=== PATIENT | male | born 1955 | race Caucasian/White ===

== ENCOUNTER 2023-03-29 10:51 | Emergency (ER) | payer BC, SELFPAY ==
--- NOTE | ~2023-03-29 | CT_ITS ---
EXAMINATION: CT abdomen pelvis w con DATE: 03/29/2023 12:44 INDICATION: Right lower quadrant pain and tenderness TECHNIQUE: Computed tomography (CT) of the abdomen and pelvis was performed with 100 mL Omnipaque-350 intravenous contrast. Automated exposure control and iterative reconstruction technique were employe d. The dose-length product was 412.06 mGy-cm. COMPARISON: None FINDINGS: Lung bases are clear. Heart size is normal. No pericardial or pleural effusion. Multiple calcified sp lenic nodules and a few small hepatic calcific lesions consistent with old granulomatous disease. Gal lbladder, pancreas, bilateral adrenal glands and left kidney are normal. 4 mm cyst at the upper pole the right kidney. Normal appendix. A couple diverticula along the distal descending colon without adj acent comparison to suggest diverticular colitis. Bowels are otherwise unremarkable with no obstructi on bladder is normal. Prostatomegaly measuring 4.6 x 3.4 cm. No free intraperitoneal gas or fluid. No pathologically enlarged abdominal or pelvic lymphadenopathy. Moderate to lumbar and lower thoracic s pondylosis. There are bridging osteophytes at multiple levels in the spine and bridging osteophytes a cross the right sacroiliac joint, consistent with diffuse idiopathic skeletal hyperostosis (DISH). IMPRESSION: 1. No acute intra-abdominal/pelvic process with normal appendix. Reviewed, dictated and finalized at location A.
[2023-03-29 11:00] VITALS: BP 139/83; PULSE 85; RESP 15; TEMP 36.8; O2SAT 99
[2023-03-29 11:23] LABS: Basophils Absolute Auto 0.1 K/mm3 (0.0-0.1); Basophils Percent Auto 1.1 % (0.2-1.2); Eosinophils Absolute Auto 0.5 K/mm3 (0-0.3); Eosinophils Percent Auto 6.4 % (0-4.4); Hemoglobin 14.5 g/dL (14.0-18.0); Immature Granulocyte Absolute 0.02 K/mm3 (0.00-0.031); Immature Granulocyte Percent A 0.3 % (0-0.5); Lymphocytes Percent Auto 32.5 % (18.3-44.2); Mean Corpuscular HGB Conc 33.7 g/dl (32-36); Mean Corpuscular Hemoglobin 30.5 pg (26-34); Mean Corpuscular Volume 90.3 fl (80-100); Mean Platelet Volume 9.9 fl (7.4-10.4); Monocytes Absolute Auto 0.6 K/mm3 (0.1-0.6); Monocytes Percent Auto 7.5 % (2.6-8.5); Neutrophils Absolute Auto 4.2 K/mm3 (1.3-6.7); Neutrophils Percent Auto 52.2 % (45.5-73.1); Platelet Count Result 192 k/mm3 (150-375); Red Blood Count 4.76 M/mm3 (4.6-6.20)
[2023-03-29 11:25] LABS: Appearance Urine Clear (Clear); Bilirubin Urine Negative (Negative); Blood Urine Negative (Negative); Color Urine Yellow (Yellow); Glucose Urine UA Negative (Negative); Ketones Urine Negative (Negative); Leukocyte Esterase Ur Negative LEU/UL (Negative); Nitrate Urine Negative (Negative); Protein Urine Negative (Negative); Specific Grav Ur 1.005 (1.001-1.035); Urobilinogen Urine 0.2 mg/dL (<2.0); pH Urine 5.5 (5.0-9.0)
[2023-03-29 11:29] LABS: Add Urine Microscopic? NO
[2023-03-29 11:36] LABS: Alanine Aminotransferase 22 U/L (6-50); Albumin Level 4.7 g/dL (3.5-5.1); Alkaline Phosphatase 88 U/L (38-126); Anion Gap 9 mmol/L (8-16); Aspartate Amino Transferase 31 U/L (17-59); Bilirubin,Total 1.2 mg/dL (0.2-1.3); Blood Urea Nitrogen 19 mg/dL (9-20); Calcium 9.3 mg/dL (8.4-10.2); Carbon Dioxide 26 mmol/L (22-30); Chloride 98 mmol/L (98-107); Estimated CRCL calculation 74 ml/min; Estimated Glomerular Filt Rate > 60; Glucose 86 mg/dL (65-110); Lipase 95 U/L (23-300); Potassium 4.2 mmol/L (3.4-5.0); Sodium 133 mmol/L (137-145)
--- NOTE | 2023-03-29 12:18 | ED.ABDPAIN ---
HPI - Abdominal Pain General Chief Complaint: Abdominal Pain Stated Complaint: Lower Abd Pain Time Seen by Provider: 03/29/23 12:06 History of Present Illness HPI narrative: Patient is a 67-year-old male presenting with abdominal pain. Patient states over the last several days he has had right-sided lower abdominal pain that radiates into his groin. States that he has chronic urinary frequency that he thinks is related to an enlarged prostate. No fevers or chills, chest pain, shortness of breath, cough, nausea or vomiting, diarrhea, constipation, dysuria, melena, hematochezia. Related Data Allergies Allergy/AdvReac Type Severity Reaction Status Date / Time No Known Allergies Allergy Verified 03/29/23 11:05 Review of Systems Review of Systems: All systems reviewed & are unremarkable except as noted in HPI and below PMFSH Social History Social History Alcohol intake: current Exam Narrative: GENERAL: Well-appearing, well-nourished, and in no acute distress. HEAD: Normocephalic, atraumatic. EYES: PERRLA and EOMI. ENT: Nares clear, no rhinorrhea or epistaxis. Mucous membranes moist. NECK: Supple. CHEST: Clear to auscultation. No respiratory distress. HEART: Regular rate and rhythm ABDOMEN: Soft, mild right lower quadrant tenderness, no guarding or rebound EXTREMITIES: Normal range of motion. No edema. SKIN: Warm, dry, no rash. NEURO: No focal deficits. Alert and oriented x3. PSYCH: Normal mood and affect. Course Vital Signs Vital signs: Vital Signs Temperature 98.3 F 03/29/23 11:00 Pulse Rate 85 03/29/23 11:00 Respiratory Rate 15 03/29/23 11:00 Blood Pressure 139/83 03/29/23 11:00 Pulse Oximetry 99 03/29/23 11:00 Oxygen Delivery Room Air 03/29/23 11:00 Temperature 98.3 F 03/29/23 11:00 Pulse Rate 80 03/29/23 13:34 Respiratory Rate 15 03/29/23 13:34 Blood Pressure 140/80 03/29/23 13:34 Pulse Oximetry 100 03/29/23 13:34 Oxygen Delivery Room Air 03/29/23 11:00 MDM - Abdominal Pain MDM Narrative Medical decision making narrative: Patient is a 67-year-old male presenting with right lower abdominal pain for several days. Vitals are stable. Exam remarkable for the above. Blood work is unremarkable. UA is not infected. No blood. CT abdomen pelvis shows no acute abnormalities. Normal appendix. No ureteric lithiasis. On reevaluation, the patient is resting comfortably. Discussed the reassuring work-up. Feel he is safe for outpatient management. Advised that he follow-up with his PCP, states that he already has an appointment next week. Appropriate return precautions given. Patient voiced understanding and is agreeable with plan. Discharged in stable condition. Differential Diagnosis Differential diagnosis: Likely abdominal pain, acute appendicitis, calculus of kidney, constipation, diverticulitis, gastroenteritis, pancreatitis and small bowel obstruction Medical Records Attestation: I reviewed the patient's medical records. Lab Data Attestation: I reviewed the patient's lab results. 03/29/23 11:15 03/29/23 11:15 Labs: Lab Results 03/29/23 Range/Units 11:15 WBC 8.0 (4.5-10.0) K/mm3 RBC 4.76 (4.6-6.20) M/mm3 Hgb 14.5 (14.0-18.0) g/dL Hct 43.0 (42.0-52.0) % MCV 90.3 (80-100) fl MCH 30.5 (26-34) pg MCHC 33.7 (32-36) g/dl RDW 12.0 (11.5-14.5) % Plt Count 192 (150-375) k/mm3 MPV 9.9 (7.4-10.4) fl Immature Gran % (Auto) 0.3 (0-0.5) % Neut % (Auto) 52.2 (45.5-73.1) % Lymph % (Auto) 32.5 (18.3-44.2) % [place] % (Auto) 7.5 (2.6-8.5) % Eos % (Auto) 6.4 H (0-4.4) % Baso % (Auto) 1.1 (0.2-1.2) % Lymph # (Auto) 2.60 (0.9-3.2) K/mm3 [place] # (Auto) 0.6 (0.1-0.6) K/mm3 Eos # (Auto) 0.5 H (0-0.3) K/mm3 Baso # (Auto) 0.1 (0.0-0.1) K/mm3 Abs Immat Gran (auto) 0.02 (0.00-0.031) K/mm3 Absolute Neuts (auto) 4.2 (1.3-6.
[2023-03-29 13:34] VITALS: BP 140/80; PULSE 80; RESP 15; O2SAT 100
== END 2023-03-29 13:35 | disposition home or self-care (01) ==
PROVIDERS: Preventive Medicine Aerospace Medicine; Emergency Provider Emergency Medicine; PCP Internal Medicine
DX: R10.31 Right lower quadrant pain (principal)
CPT/HCPCS: 36415; 74177; 80053; 81003; 83690; 85025; 99284; Q9967

== ENCOUNTER 2025-01-01 01:11 | Day surgery (SDC) | payer BC, SELFPAY ==
[2024-12-18 13:59] VITALS: BMI 28.2
[2025-01-01 10:00] VITALS: BP 128/77; PULSE 81; RESP 18; TEMP 37.2; O2SAT 98; BMI 29.1
[2025-01-01] MEDS: LACTATED RINGERS 1,000 ML 150 ML IV CONT (10:20)
--- NOTE | 2025-01-01 10:29 | P.PNAN_ITS ---
Anes - Initial Pre Proc Eval Procedure: Operation Date: 01/01/25 11:30 Proposed Procedures p Screening Colonoscopy - Gregg Roa MD Date/Time: 01/01/25 10:29 Surgeon: Gregg Roa MD Pre Op Diagnosis: Screening Patient Data Age: 69 Gender: M Height: 1.7 m Weight: 84.5 kg Last Vital Signs Temp 37.2 C 01/01/25 10:00 Pulse 81 01/01/25 10:00 Resp 18 01/01/25 10:00 BP 128/77 01/01/25 10:00 Pulse Ox 98 01/01/25 10:00 O2 Del Method Room Air 01/01/25 10:00 Allergies Allergy/AdvReac Type Severity Reaction Status Date / Time No Known Allergies Allergy Verified 01/01/25 10:04 Home Medications ?Medication ?Instructions ?Recorded ?Confirmed ?Type No Home Medications 12/18/24 12/18/24 History Patient hx anesthesia problems: none Family hx anesthesia problems: none Results Review: All pre-operative results and documents have been reviewed as part of the pre- operative evaluation. [facility] Social History Social History (Updated 01/01/25 @ 10:36 by Francisco Yu DO) Smoking status: Never smoker Alcohol intake: current Drinks per week: 14 Alcohol use details: 2-3/day Substance use: never Substance use type: does not use Living arrangements: with family Spiritual care concerns: No Anes - Eval Final PreProcedure Day of Procedure 01/01/25 10:29 Patient weight: overweight Heart: regular rate and rhythm Lungs: clear to auscultation Airway: Mallampati scale class II Neurological: alert and oriented Last oral intake: >/= 8 hours ASA classification: III Emergent: no Anesthetic plan: proceed Anesthesia type and monitoring: general GIVS and standard monitoring Results Review: All pre-operative results and documents have been reviewed as part of the pre- operative evaluation. Informed Consent: The patient's anesthetic plan and its attendant risks and benefits were discussed with the patient/family/POA. Questions were solicited and answers provided to the satisfaction of the patient/family/POA.
--- NOTE | 2025-01-01 11:14 | P.HP_ITS ---
H&P: HPI History of Present Illness Date/Time: 01/01/25 11:14 Chief Complaint: Screening colonoscopy Narrative: This is the patient's first colonoscopy. There are no GI symptoms and there is no family history of colorectal cancer. Review of Systems Review of Systems: All systems reviewed & are unremarkable except as noted in HPI and below [facility] Social History Social History (Updated 01/01/25 @ 10:36 by Francisco Yu DO) Smoking status: Never smoker Alcohol intake: current Drinks per week: 14 Alcohol use details: 2-3/day Substance use: never Substance use type: does not use Living arrangements: with family Spiritual care concerns: No Meds Home Medications and Allergies Home Medications ?Medication ?Instructions ?Recorded ?Confirmed ?Type No Home Medications 12/18/24 12/18/24 History Allergies Allergy/AdvReac Type Severity Reaction Status Date / Time No Known Allergies Allergy Verified 01/01/25 10:04 Vital Signs Vital Signs - 24 hr 01/01/25 10:00 Temperature 99.0 F Pulse Rate 81 Respiratory Rate 18 Blood Pressure 128/77 Pulse Oximetry 98 Oxygen Delivery Room Air Exam Const: General: cooperative and healthy appearing Resp: Effort & Inspection: normal respiratory effort and able to speak in complete sentences Auscultation: clear to auscultation bilaterally Cardio: Rate: regular rate Rhythm: regular rhythm GI: Inspection: normal to inspection GI Palp: No No hepatosplenomegaly present Auscultation: normal bowel sounds Rectal Exam: deferred Skin: General skin exam: normal color Psych: Appearance: grossly normal Mental Status: mental status grossly normal Assessment and Plan Assessment and plan (1) Encounter for screening colonoscopy: Code(s): Z12.11 - Encounter for screening for malignant neoplasm of colon Status: Acute Assessment and Plan: The patient is deemed a good candidate for the procedure. Consent signed. Will proceed.
--- NOTE | 2025-01-01 11:38 | S_PTH ---
PATIENT: Jairo Diop LOC: [facility] U#:[id number] AGE/SX: 69/M ROOM: RE01/01/[address]: Gregg Roa MD : [id number] BED: DIS: 01/01/2025 SPEC #: [id number] RECD: 01/01/25 13:26 STATUS: SANDY REAmanda #: [id number] CHET: 01/01/25 11:[address]: Gregg Roa DEPT: [facility] RECD BY: Laura Meyers ENTERED: 01/01/25 13:26 SP TYPE: Surgical OTHR DR: Francis DaiMD Tissues: A - Colon Polypectomy B - Colon Polypectomy Procedures: Hematoxylin and Eosin Stain Gross and Microscopic Level 4
[2025-01-01 11:43] VITALS: BP 82/49; PULSE 56; RESP 14; O2SAT 97
[2025-01-01 11:53] VITALS: BP 79/40; PULSE 61; RESP 15; O2SAT 98
[2025-01-01 12:03] VITALS: BP 94/57; PULSE 60; RESP 14; O2SAT 98
[2025-01-01 12:10] VITALS: BP 97/58
== END 2025-01-01 12:17 | disposition home or self-care (01) ==
PROVIDERS: PCP Internal Medicine; Referring Provider Internal Medicine; Visit Provider Internal Medicine Gastroenterology
PROC: 0DJD8ZZ Inspection of Lower Intestinal Tract, Via Natural or Artificial Opening Endoscopic (ICD-10-PCS; CPT 45378; principal; 2025-01-01 11:30)
DX: Z12.11 Encounter for screening for malignant neoplasm of colon (principal); D12.3 Benign neoplasm of transverse colon; D12.2 Benign neoplasm of ascending colon; K57.30 Diverticulosis of large intestine without perforation or abscess without bleeding; K64.8 Other hemorrhoids
CPT/HCPCS: 45385; 88305; J2003; J2371; J2704; J7120